=== PATIENT | male | born 1950 ===

== ENCOUNTER 2018-10-28 10:41 | Emergency (ER) | payer MEDICARE ==
[~2018-10-28] VITALS: Ht 180.3 cm; Wt 81.7 kg
== END 2018-10-28 11:13 | disposition home or self-care (01) ==
LOC: ER 10:41
DX: H81.399 Other peripheral vertigo, unspecified ear (principal)
CPT/HCPCS: 99283

== ENCOUNTER 2018-12-04 10:18 | Emergency (ER) | payer MEDICARE ==
[~2018-12-04] VITALS: Ht 177.8 cm; Wt 87.1 kg
[2018-12-04 11:01] LABS: BASOPHILS ABSOLUTE AUTO 0.04 K/mm3 (0.00-0.23); BASOPHILS PERCENT AUTO 1 % (0-2); EOSINOPHILS ABSOLUTE AUTO 0.35 K/mm3 (0.00-0.68); EOSINOPHILS PERCENT AUTO 5 % (0-6); Hematocrit 44.3 % (37.0-53.0); IMMATURE GRAN ABSOLUTE AUTO 0.02 K/mm3 (0.00-0.10); IMMATURE GRAN PERCENT AUTO 0 % (0-1); LYMPHOCYTES PERCENT AUTO 43 % (21-46); MONOCYTES ABSOLUTE AUTO 0.43 K/mm3 (0.16-1.47); MONOCYTES PERCENT AUTO 7 % (4-13); Mean Corpuscular HGB 30.4 pg (26.0-34.0); Mean Corpuscular HGB Conc 33.9 g/dL (31.5-36.5); Mean Corpuscular Volume 90 fL (80-100); Mean Platelet Volume 11.2 fL (9.1-12.4); NEUTROPHILS ABSOLUTE AUTO 2.83 K/mm3 (1.96-9.15); NEUTROPHILS PERCENT AUTO 44 % (41-73); Platelet Count 154 K/mm3 (150-400); RDW Standard Deviation 42.9 fL (35.1-46.3); Red Blood Cell Count 4.93 M/mm3 (4.30-5.90); White Blood Cell Count 6.47 K/mm3 (4.00-11.30)
[2018-12-04 11:20] LABS: Alanine Aminotransfer (ALT/SGP 32 U/L (12-78); Albumin, Blood 3.7 g/dL (3.4-5.0); Albumin/Globulin Ratio 0.9 (0.8-1.8); Alk Phos 73 U/L (50-136); Anion Gap 4 mmol/L (6-16); Aspartate Aminotrans (AST/SGOT 18 U/L (12-37); Bilirubin, Total 0.4 mg/dL (0.1-1.0); Blood Urea Nitrogen 15 mg/dL (8-24); Bun/Creatinine Ratio 20.1 (12.0-20.0); CO2, Blood 26 mmol/L (21-32); Calcium, Blood 8.9 mg/dL (8.5-10.1); Chloride, Blood 109 mmol/L (98-108); Creatinine, Blood 0.75 mg/dL (0.60-1.20); Globulin, Blood 4.1 g/dL (2.2-4.0); Glomerular Filtration Rate >60 (60-); Glucose, Blood 103 mg/dL (70-99); Potassium, Blood 3.7 mmol/L (3.5-5.5); Sodium, Blood 139 mmol/L (136-145); Total Protein, Blood 7.8 g/dL (6.4-8.2); Troponin I <0.015 ng/mL (0.000-0.040)
== END 2018-12-04 13:20 | disposition home or self-care (01) ==
LOC: ER 10:18
PROVIDERS: Emergency Medicine
DX: R42 Dizziness and giddiness (principal); R55 Syncope and collapse; I10 Essential (primary) hypertension; Z87.891 Personal history of nicotine dependence
CPT/HCPCS: 36415; 70450; 80053; 84484; 85025; 93005; 93010; 99284-25

== ENCOUNTER 2018-12-09 06:44 | Emergency (ER) | payer MEDICARE ==
[~2018-12-09] VITALS: Ht 177.8 cm; Wt 86.2 kg
[2018-12-09] MEDS ORDERED: BREO ELLIPTA 21 EACH IH (06:57)
[2018-12-09] MEDS ORDERED: HYDROCHLOROTHIAZIDE (06:58)
[2018-12-09] MEDS ORDERED: METOPROLOL (06:59)
== END 2018-12-09 07:38 | disposition left against medical advice (07) ==
LOC: ER 06:44
DX: Z53.21 Procedure and treatment not carried out due to patient leaving prior to being seen by health care provider (principal)

== ENCOUNTER 2019-07-05 20:27 | Inpatient (IN) | payer MEDICARE ==
[~2019-07-05] VITALS: Ht 177.8 cm; Wt 95.8 kg
[~2019-07-05 20:27] MED LIST: BREO ELLIPTA 21 EACH IH; HYDROCHLOROTHIAZIDE; METOPROLOL
[2019-07-05] MEDS ORDERED: HYDCHL25 PO (20:41)
[2019-07-05] MEDS ORDERED: ESCITALOPRAM OXA5 MG (20:41)
[2019-07-05] MEDS ORDERED: METOPROLOL SUCC25 MG PO (20:41)
[2019-07-05 20:48] LABS: BASOPHILS ABSOLUTE AUTO 0.04 K/mm3 (0.00-0.23); BASOPHILS PERCENT AUTO 1 % (0-2); EOSINOPHILS ABSOLUTE AUTO 0.27 K/mm3 (0.00-0.68); EOSINOPHILS PERCENT AUTO 4 % (0-6); Hematocrit 40.6 % (37.0-53.0); Hemoglobin 13.9 g/dL (13.5-17.5); IMMATURE GRAN ABSOLUTE AUTO 0.02 K/mm3 (0.00-0.10); IMMATURE GRAN PERCENT AUTO 0 % (0-1); LYMPHOCYTES ABSOLUTE AUTO 2.45 K/mm3 (0.84-5.20); LYMPHOCYTES PERCENT AUTO 38 % (21-46); MONOCYTES ABSOLUTE AUTO 0.54 K/mm3 (0.16-1.47); MONOCYTES PERCENT AUTO 8 % (4-13); Mean Corpuscular HGB 31.1 pg (26.0-34.0); Mean Corpuscular HGB Conc 34.2 g/dL (31.5-36.5); Mean Corpuscular Volume 91 fL (80-100); Mean Platelet Volume 11.4 fL (9.1-12.4); NEUTROPHILS ABSOLUTE AUTO 3.21 K/mm3 (1.96-9.15); NEUTROPHILS PERCENT AUTO 49 % (41-73); Platelet Count 154 K/mm3 (150-400); RDW Coefficient Variation 12.5 % (11.7-14.2); RDW Standard Deviation 41.3 fL (35.1-46.3); Red Blood Cell Count 4.47 M/mm3 (4.30-5.90); White Blood Cell Count 6.53 K/mm3 (4.00-11.30)
[2019-07-05 21:11] LABS: Alanine Aminotransfer (ALT/SGP 36 U/L (12-78); Albumin, Blood 3.6 g/dL (3.4-5.0); Albumin/Globulin Ratio 0.9 (0.8-1.8); Alk Phos 61 U/L (50-136); Anion Gap 7 mmol/L (6-16); Aspartate Aminotrans (AST/SGOT 25 U/L (12-37); Bilirubin, Total 0.3 mg/dL (0.1-1.0); Blood Urea Nitrogen 19 mg/dL (8-24); Bun/Creatinine Ratio 23.8 (12.0-20.0); CO2, Blood 27 mmol/L (21-32); Chloride, Blood 105 mmol/L (98-108); Globulin, Blood 4.1 g/dL (2.2-4.0); Glomerular Filtration Rate >60 (60-); Glucose, Blood 181 mg/dL (70-99); Magnesium, Blood 2.1 mg/dL (1.6-2.4); Potassium, Blood 3.8 mmol/L (3.5-5.5); Sodium, Blood 139 mmol/L (136-145); Total Protein, Blood 7.7 g/dL (6.4-8.2); Troponin I <0.015 ng/mL (0.000-0.040)
[2019-07-05 21:31] LABS: International Normalized Ratio 0.94; Prothrombin Time Results 10.1 Sec (9.7-11.5)
--- NOTE | 2019-07-06 | NUR ---
INITAL SHIFT ASSESSMENT PT ARRIVED TO ICU VIA GURNEY. HE WAS ABLE TO STAND WITH NO ISSUES AND TRANSFER TO BED. HE IS VERY PLESANT AND COOPERTIVE WITH CARE. SECOND IV WAS STARTED FOR HEP GTT. THIS WAS STARTED ORDERED SEE EMAR. DURING THIS TIME PT WAS ABLE TO GIVE A FULL HEALTH HISTORY TO THIS NURSE. PT'S OVERALL PHYSICAL ASSESSMENT IS BENIGN. CARDIZEM GTT AND HEP GTT RUNNING ORDERED. PO METOPROLOL AND PO POTASSIUM WAS GIVEN TO PT ORDERED. IV POTASSIUM WAS ATTEMPTED TO GIVE TO PT BUT HE DID NOT TOLERATE THE BURNING IN HIS IV. VITALS ARE STABLE. CALL LIGHT IN REACH. BED IN LOW POSITION. WILL CON'T TO MONITOR AND KEEP PT SAFE T/O REMAINDER OF SHIFT.
[2019-07-06 04:36] LABS: Hematocrit 39.1 % (37.0-53.0); Hemoglobin 13.3 g/dL (13.5-17.5); Mean Corpuscular HGB 30.7 pg (26.0-34.0); Mean Corpuscular Volume 90 fL (80-100); Mean Platelet Volume 10.8 fL (9.1-12.4); Platelet Count 149 K/mm3 (150-400); RDW Coefficient Variation 12.5 % (11.7-14.2); RDW Standard Deviation 41.2 fL (35.1-46.3); Red Blood Cell Count 4.33 M/mm3 (4.30-5.90); White Blood Cell Count 6.85 K/mm3 (4.00-11.30)
[2019-07-06 04:59] LABS: Alanine Aminotransfer (ALT/SGP 30 U/L (12-78); Albumin, Blood 3.1 g/dL (3.4-5.0); Albumin/Globulin Ratio 0.8 (0.8-1.8); Alk Phos 49 U/L (50-136); Anion Gap 5 mmol/L (6-16); Aspartate Aminotrans (AST/SGOT 21 U/L (12-37); Bilirubin, Total 0.4 mg/dL (0.1-1.0); Blood Urea Nitrogen 18 mg/dL (8-24); Bun/Creatinine Ratio 20.8 (12.0-20.0); CO2, Blood 28 mmol/L (21-32); CPK Creatine Kinase 104 U/L (39-308); Calcium, Blood 8.7 mg/dL (8.5-10.1); Chloride, Blood 108 mmol/L (98-108); Creatinine, Blood 0.87 mg/dL (0.60-1.20); Globulin, Blood 3.7 g/dL (2.2-4.0); Glomerular Filtration Rate >60 (60-); Glucose, Blood 147 mg/dL (70-99); Potassium, Blood 3.9 mmol/L (3.5-5.5); Sodium, Blood 141 mmol/L (136-145); Total Protein, Blood 6.8 g/dL (6.4-8.2); Troponin I 0.307 ng/mL (0.000-0.040)
--- NOTE | 2019-07-06 06:11 | NUR ---
SHIFT SUMMARY PT CON'T TO BE PLESANT AND COOPERTIVE WITH HIS CARE. PT CONVERTED THIS AM TO SINUS IN THE 50'S. BP HAS BECOME MORE STABLE WITH THIS. PT STATES HE FEELS MUCH BETTER. DR WALLACE WAS CALLED REGARDING TURNING OFF THE CARDIZEM GTT R/T CONVERSION AND METOPROLOL ALREADY BEING ON BOARD. WILL CON'T TO MONITOR AND KEEP PT SAFE TILL REPORT TO ONCOMING RN.
--- NOTE | 2019-07-06 07:50 | NUR ---
ASSUMED CARE RECIEVED REPORT FROM ANDRY HAMILTON. PT IS IN GOOD SPIRITS, LYING IN BED ALERT AND ORIENTED X 4. PT IS IN SINUS RHYTHM WITH OCCASIONAL ECTOPY. BP SOFT BUT OKAY (SBP < 100; MAP > 65). RATE IN THE 60'S. HE IS ON A HEPARIN GTTP: 13 UNITS/KG/HOUR, 83KG WEIGHT -- VERIFIED BY ME AND JOY WILDE. BED IS LOW AND LOCKED. CALL LIGHT WTIHIN REACH.
--- NOTE | 2019-07-06 10:04 | NUR ---
Echocardiogram completed.
[2019-07-06 13:03] LABS: Troponin I 0.235 ng/mL (0.000-0.040)
--- NOTE | 2019-07-06 18:36 | NUR ---
SHIFT SUMMARY PT SPENT MAJORITY OF THE DAY LYING IN BED WITH NO MAJOR EVENTS. HE REMAINED IN NORMAL SINUS RHYTHM (TO ASYMPTOMATIC SINUS BRADYCARDIA) RATE 50-60'S. DENIES CP TODAY AND SOB. ALTHOUGH WITH EXERTION HE HAS SOB (FROM HIS COPD). HIS TROPONIN ENDED UP TRENDING DOWNWARD. ECHO SHOWED WORSENING OF AORTIC VALVE STENOSIS, MAYUR WAS CONSULTED AND SAW PT THIS EVENING. HE TALKED TO PT REGARDING ANGIOGRAM IN THE AM. HE ALSO DISCUSSED POTENTIAL FOR A VALVE SURGERY AND DEPENDING ON THE ANGIO A POSSIBLE CABG. I SPENT CONSIDERABLE TIME WITH PT ANSWERING QUESTIONS REGARDING THE DISEASE PROCESS, AND WHAT THE TREATMENT OPTIONS MEAN. THIS WAS A LOT FOR HIM TO HEAR, BUT HE APPEARS TO BE HANDELING IT QUITE WELL AND OPTIMISTICALLY. HE REMAINS ON ROOM AIR, BP WAS STABLE ALL DAY. HE REMAINS ON A HEPARIN GTTP AT 15 UNITS/KG/HR, WEIGHT IS 83 KG, AND THIS WILL BE TURNED OFF AT MIDNIGHT. ALONG WITH A NPO STATUS BEING IMPLEMENTED. BED LOW AND LOCKED. CALL LIGHT REMAINS WITHIN REACH.
--- NOTE | 2019-07-06 20:30 | NUR ---
INITAL SHIFT ASSESSMENT PT IS ALERT IN HIS ROOM ON HIS PHONE AT THIS TIME. HE DENIES CHEST PAIN OR ANY OTHER DISCOMFORT. HE DOES STATE HE WANTS TO MAKE OUT A WILL AND ADVANCE DIRECTIVE. WILL FACILITATE THESE REQUESTS. VITALS ARE STABLE AT THIS TIME. HE SEEMS ANXIOUS ABOUT HIS CONDITION, BUT READY FOR TOMORROW'S TESTS. HEP GTT CON'T TO RUN AT 15UNITS. WILL TITRATE NEEDED. WILL CON'T TO MONITOR AND KEEP PT SAFE T/O REMAINDER OF SHIFT.
--- NOTE | 2019-07-07 05:41 | NUR ---
SHIFT SUMMARY PT CON'T TO BE STABLE WITH NO CHANGES FROM BASELINE. VITALS ARE STABLE THIS AM. HE SEEMS TO BE IN A VERY UPBEAT MOOD THIS AM. STATES HE IS READY TO GO. PT WAS ABLE TO USE URINAL WITH NO ISSUES T/O SHIFT. ON THE PHONE AT THIS TIME WITH FRIEND. PT WAS ALSO GIVEN AN ADVANCE DIRECTIVE BROCURE FOR HIM TO FILL OUT. WILL CON'T TO MONITOR AND KEEP PT SAFE TILL REPORT TO ONCOMING RN.
--- NOTE | 2019-07-07 07:28 | NUR ---
CARE ASSUMED CARE AND REPORT ASSUMED FROM JOY WILDE. PT SITTING UP IN BED WATCHING TV, A/O X 3, INDEPENDENT IN ROOM. DENIES PAIN THIS AM; DENIES ANY CHEST PAIN. VSS. NSR, HR 50S. MURMUR PRESENT ON AUSCULTATION. LUNG SOUNDS CLEAR THROUGHOUT; SPO2 97% ON RA. IV SALINE LOCKED. PT NPO EXCEPT MEDS. CALL LIGHT WITHIN REACH. WILL CONTINUE TO MONITOR.
[2019-07-07 11:13] LABS: BASOPHILS ABSOLUTE AUTO 0.03 K/mm3 (0.00-0.23); BASOPHILS PERCENT AUTO 1 % (0-2); EOSINOPHILS ABSOLUTE AUTO 0.11 K/mm3 (0.00-0.68); EOSINOPHILS PERCENT AUTO 2 % (0-6); Hematocrit 41.1 % (37.0-53.0); Hemoglobin 13.9 g/dL (13.5-17.5); IMMATURE GRAN ABSOLUTE AUTO 0.01 K/mm3 (0.00-0.10); IMMATURE GRAN PERCENT AUTO 0 % (0-1); LYMPHOCYTES ABSOLUTE AUTO 1.73 K/mm3 (0.84-5.20); LYMPHOCYTES PERCENT AUTO 31 % (21-46); MONOCYTES ABSOLUTE AUTO 0.42 K/mm3 (0.16-1.47); MONOCYTES PERCENT AUTO 8 % (4-13); Mean Corpuscular HGB 30.8 pg (26.0-34.0); Mean Corpuscular HGB Conc 33.8 g/dL (31.5-36.5); Mean Corpuscular Volume 91 fL (80-100); Mean Platelet Volume 11.1 fL (9.1-12.4); NEUTROPHILS ABSOLUTE AUTO 3.31 K/mm3 (1.96-9.15); NEUTROPHILS PERCENT AUTO 59 % (41-73); Platelet Count 135 K/mm3 (150-400); RDW Coefficient Variation 12.6 % (11.7-14.2); RDW Standard Deviation 41.7 fL (35.1-46.3); Red Blood Cell Count 4.52 M/mm3 (4.30-5.90); White Blood Cell Count 5.61 K/mm3 (4.00-11.30)
[2019-07-07 11:36] LABS: Alanine Aminotransfer (ALT/SGP 33 U/L (12-78); Albumin, Blood 3.2 g/dL (3.4-5.0); Albumin/Globulin Ratio 0.8 (0.8-1.8); Alk Phos 54 U/L (50-136); Anion Gap 4 mmol/L (6-16); Aspartate Aminotrans (AST/SGOT 23 U/L (12-37); Bilirubin, Total 0.3 mg/dL (0.1-1.0); Blood Urea Nitrogen 13 mg/dL (8-24); Bun/Creatinine Ratio 16.7 (12.0-20.0); CO2, Blood 28 mmol/L (21-32); Calcium, Blood 8.5 mg/dL (8.5-10.1); Chloride, Blood 110 mmol/L (98-108); Creatinine, Blood 0.78 mg/dL (0.60-1.20); Globulin, Blood 4.1 g/dL (2.2-4.0); Glomerular Filtration Rate >60 (60-); Glucose, Blood 111 mg/dL (70-99); Sodium, Blood 142 mmol/L (136-145); Total Protein, Blood 7.3 g/dL (6.4-8.2)
--- NOTE | 2019-07-07 12:03 | NUR ---
REASSESSMENT PT REMAINS IN ROOM; PAIN FREE AND CHEST PAIN FREE. VSS. NSR, HR 50S. PT REMAINS NPO. AWAITING MATERIAL ENGINEER. WILL CONTINUE TO MONITOR.
--- NOTE | 2019-07-07 12:35 | NUR ---
TO LICENSE CLERK 1220 - PT TO LICENSE CLERK AT THIS TIME. VSS.
--- NOTE | 2019-07-07 13:28 | NUR ---
RETURN FROM ERECTOR OPERATOR PT RETURNED AT 1320 FROM ERECTOR OPERATOR. PT IS A/O X 3, CALM AND COOPERATIVE. TR BAND SECURED ON R WRIST AND ARM SECURED IN ARMBOARD. VSS. WILL MONITOR.
--- NOTE | 2019-07-07 14:59 | NUR ---
TRANSFER TO [facility] REPORT CALLED TO PAULINO RN AT [facility]. PT TRAN[facility]ERRED BY [facility]. PT LEFT AT THE UNIT AT 1450. BOTH AMBULANCE STAFF AND RECEIVING RN AWARE THAT PT HAS TR BAND SECURED AND INFLATED.
== END 2019-07-07 14:56 | disposition short-term general hospital (02) | DRG 282 ==
LOC: ER 20:27 → PCU 20:28 → ICUE 20:28
PROVIDERS: Emergency Medicine; Family Medicine; ADMIT Internal Medicine
PROC: B2111ZZ Fluoroscopy of Multiple Coronary Arteries using Low Osmolar Contrast (ICD-10-PCS; principal; 2019-07-07)
DX: I21.9 Acute myocardial infarction, unspecified (principal); I48.0 Paroxysmal atrial fibrillation; I21.A1 Myocardial infarction type 2; I10 Essential (primary) hypertension; J44.9 Chronic obstructive pulmonary disease, unspecified; Z87.891 Personal history of nicotine dependence; I35.0 Nonrheumatic aortic (valve) stenosis; I25.10 Atherosclerotic heart disease of native coronary artery without angina pectoris
CPT/HCPCS: 36415; 71045; 80053; 82550; 83036; 83735; 83880; 84439; 84443; 84484; 85025; 85027; 85610; 85730; 93005; 93010; 93306; 93454; 94640; 96365; 96366; 96375; 96376; 99152; 99153; 99285-25; A9270; A9270-GY; C1769; C1894; G0378; J1644; J2250; J3010; J3480; J7030; Q9967